=== PATIENT | female | born 1940 | race Caucasian/White ===

== ENCOUNTER 2016-10-27 16:11 | Emergency (ER) | payer MEDICARE, OTHER ==
[2016-10-27] MEDS ORDERED: Sodium Chloride 0.9% 10 ML Syringe FLUSH PRN (16:20)
[2016-10-27] MEDS ORDERED: Morphine 2 MG/ML Syringe IVPUSH ONE (16:20)
[2016-10-27] MEDS ORDERED: Ondansetron 4 MG/2 ML SDV ONE (17:19)
--- NOTE | 2016-10-27 17:43 | EDM.PDOC ---
ED HPI GENERAL MEDICAL PROBLEM - General Chief Complaint: General Stated Complaint: RIGHT HIP PAIN Time Seen by Provider: 10/27/16 16:11 Source of Information: Reports: Patient, Family History Limitations: Reports: No Limitations - History of Present Illness INITIAL COMMENTS - FREE TEXT/NARRATIVE: This is a 75yo F who fell from standing height on her right side. Patient states her pain of the right hip and down is 10/10. It is excruciating when moved. Patient denies other health concerns. She has had a prior left hip replacement. Denies other injuries and the fall was observed by her with no head trauma. Onset: Sudden Duration: Minutes: Location: Reports: Lower Extremity, Right Quality: Reports: Ache Severity: Severe Improves with: Reports: None Worsens with: Reports: Movement Associated Symptoms: Reports: No Other Symptoms Treatments CRITICAL CARE RN: Reports: Other (see below) (EMS immobilzation with dimas bag vacuum) - Related Data Allergies Allergy/AdvReac Type Severity Reaction Status Date / Time Sulfa (Sulfonamide Allergy Other Verified 10/27/16 16:55 Antibiotics) Home Meds: Home Meds Aspirin 81 mg PO DAILY 10/27/16 [History] Atenolol 50 mg PO DAILY 10/27/16 [History] Meclizine [Antivert] 25 mg PO TID 10/27/16 [History] Olopatadine HCl [Patanol] 5 ml OP DAILY 10/27/16 [History] Ranitidine [Zantac] 150 mg PO BID 10/27/16 [History] ED ROS GENERAL - Review of Systems Review Of Systems: ROS reveals no pertinent complaints other than HPI. ED EXAM, GENERAL - Physical Exam Exam: See Below Exam Limited By: No Limitations General Appearance: Alert, WD/WN, Severe Distress Eye Exam: Bilateral Eye: EOMI Ears: Normal External Exam Nose: Normal Inspection Head: Atraumatic, Normocephalic Neck: Normal Inspection Respiratory/Chest: No Respiratory Distress, Lungs Clear Cardiovascular: Normal Peripheral Pulses, Regular Rate, Rhythm GI/Abdominal: Normal Bowel Sounds Extremities: Limited Range of Motion, Other (severe pain on palpation of right leg/hip) Neurological: Alert Psychiatric: Normal Affect, Anxious, Tearful Skin Exam: Warm, Dry, Intact Course - Orders/Labs/Meds Orders: Active Orders 24 hr Category Date Time Status Hip Min 2V or 3V Rt [CR] Stat Exams 10/27/16 16:18 Taken BASIC METABOLIC PANEL,BMP [CHEM] Stat Lab 10/27/16 17:03 Ordered INR,PT,PROTHROMBIN TIME [COAG] Stat Lab 10/27/16 17:03 Ordered TROPONIN I [CHEM] Stat Lab 10/27/16 17:03 Ordered Sodium Chloride 0.9% [Saline Flush] Med 10/27/16 16:20 Active 10 ml FLUSH ASDIRECTED PRN Peripheral IV Insertion Adult [OM.PC] Routine Oth 10/27/16 16:20 Ordered Medication Orders Sodium Chloride (Saline Flush) 10 ml FLUSH ASDIRECTED PRN PRN Reason: Keep Vein Open Labs: Laboratory Tests 10/27/16 Range/Units 17:17 WBC 8.9 (4.0-11.0) K/uL RBC 4.17 (3.80-5.80) M/uL Hgb 14.0 (11.5-16.5) g/dL Hct 40.2 (37.0-47.0) % MCV 96 (76-96) fL MCH 33.6 H (27.0-32.0) pg MCHC 34.8 (31.0-35.0) g/dL RDW 12.3 (11.0-16.0) % Plt Count 219 (150-500) K/uL MPV 11.6 H (6.0-10.0) fL Neut % (Auto) 65.3 (45.0-70.0) % Lymph % (Auto) 22.4 (20.0-40.0) % [place] % (Auto) 10.3 H (3.0-10.0) % Eos % (Auto) 1.6 (1.0-5.0) % Baso % (Auto) 0.4 (0.0-0.5) % Neut # (Auto) 5.80 (2.00-7.50) K/uL Lymph # (Auto) 1.99 (1.50-4.00) K/uL [place] # (Auto) 0.92 H (0.20-0.80) K/uL Eos # (Auto) 0.14 (0.04-0.40) K/uL Baso # (Auto) 0.04 (0.02-0.10) K/uL Meds: Medications Generic Name Dose Route Start Last Admin Trade Name Freq PRN Reason Stop Dose Admin Sodium Chloride 10 ml 10/27/16 16:20 Saline Flush FLUSH ASDIRECTED PRN Keep Vein Open Discontinued Medications Generic Name Dose Route Start Last Admin Trade Name Freq PRN Reason Stop Dose Admin Morphine Sulfate 2 mg 10/27/16 16:20 Morphine IVPUSH 10/27/16 16:21 ONETIME ONE Ondansetron HCl Confirm 10/27/16 17:19 Zofran Administered 10/27/16 17:20 Dose 4 mg .ROUTE .STK-MED ONE Departure - Departure Time of Disposition: 18:00 Disposition: DC/Tfer to Acute Hospital 02 Condition: Fair Clinical Impression: Closed right hip fracture Qualifiers: Encounter type: initial encounter Qualified Code(s): S72.001A - Fracture of unspecified part of neck of right femur, initial encounter for closed fracture - Discharge Information Forms: ED Department Discharge - Problem List Review Problem List Initiated/Reviewed/Updated: Yes - My Orders Last 24 Hours: My Active Orders 10/27/16 16:18 Hip Min 2V or 3V Rt [CR] Stat 10/27/16 16:20 Sodium Chloride 0.9% [Saline Flush] 10 ml FLUSH ASDIRECTED PRN Peripheral IV Insertion Adult [OM.PC] Routine 10/27/16 17:03 BASIC METABOLIC PANEL,BMP [CHEM] Stat INR,PT,PROTHROMBIN TIME [COAG] Stat TROPONIN I [CHEM] Stat - Assessment/Plan Last 24 Hours: My Active Orders 10/27/16 16:18 Hip Min 2V or 3V Rt [CR] Stat 10/27/16 16:20 Sodium Chloride 0.9% [Saline Flush] 10 ml FLUSH ASDIRECTED PRN Peripheral IV Insertion Adult [OM.PC] Routine 10/27/16 17:03 BASIC METABOLIC PANEL,BMP [CHEM] Stat INR,PT,PROTHROMBIN TIME [COAG] Stat TROPONIN I [CHEM] Stat Plan: Patient to be transferred to Dr. Day accepting physician in [facility]. Dr. Paris consulted and he will proceed with surgery tomorrow am. Patient labs pending and will be faxed. Patient vitals stable and we will continue pain management. Transfer via ground. Discussed with family and plan of care and transfer process. All questions answered. will drive private vehicle when ambulance leaves.
--- NOTE | 2016-10-28 11:46 | CR ---
DATE OF SERVICE: 10/27/2016 CLINICAL DATA: Fall - severe pain, likely fracture. RIGHT HIP There is an intertrochanteric fracture with coxa vera deformity. No other acute abnormalities. IMPRESSION: Right hip fracture. [id number] [facility]
== END 2016-10-27 18:20 ==
LOC: EDBD 16:11 → LB.ED 16:11
DX: S72.144A Nondisplaced intertrochanteric fracture of right femur, initial encounter for closed fracture (principal); W18.30XA Fall on same level, unspecified, initial encounter; Z79.899 Other long term (current) drug therapy; Z96.642 Presence of left artificial hip joint; Z88.2 Allergy status to sulfonamides; Z79.82 Long term (current) use of aspirin
CPT/HCPCS: 36415; 51702; 73502; 80048; 84484; 85025; 85610; 99284; A0425; A0429